=== PATIENT | female | born 2000 | race Caucasian/White ===

== ENCOUNTER 2024-09-02 13:57 | Emergency (ER) | payer BC ==
[~2024-09-02] VITALS: Ht 157.5 cm; Wt 53.9 kg
[2024-09-02 16:19] LABS: URINE HCG NEGATIVE (NEG)
[2024-09-02] MEDS ORDERED: AMOX-117 PO (16:29)
[2024-09-02 16:43] VITALS: BP 110/70; PULSE 68; RESP 14; TEMP 97.5; O2SAT 99
== END 2024-09-02 16:43 | disposition home or self-care (01) ==
LOC: ER 13:58
DX: N64.52 Nipple discharge (principal); N64.4 Mastodynia
CPT/HCPCS: 76642; 81025; 99284; A6222; A6258